=== PATIENT | male | born 1975 | race Caucasian/White ===

== ENCOUNTER 2023-04-09 12:27 | Emergency (ER) | payer SELFPAY ==
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
[2023-04-09 14:40] VITALS: BP 128/93; TEMP 97.9; O2SAT 99
== END 2023-04-09 14:35 | disposition home or self-care (01) ==
LOC: ER 12:27
DX: F43.0 Acute stress reaction (principal)